=== PATIENT | female | born 1985 | race Two or more races ===

== ENCOUNTER 2018-06-09 00:23 | Emergency (ER) | payer OTHER ==
[~2018-06-09] VITALS: Ht 160 cm; Wt 56.7 kg
--- NOTE | 2018-06-09 00:30 | NUR ---
PT BIBFAMILY FOR FLANK PAIN, PER PT, POSSIBLY KIDNEY STONES; PT [id number], PT ON MONITOR, VSS, PENDING MD HOPSON
--- NOTE | 2018-06-09 00:45 | NUR ---
URINE COLLECTED AND SENT TO LAB
[2018-06-09 00:46] LABS: APPEARANCE,URINE Clear (CLEAR); BILIRUBIN,URINE Negative (NEGATIVE); BLOOD, URINE Moderate Ery/uL (NEGATIVE); COLOR,URINE Yellow (YELLOW); KETONES,URINE Negative (NEGATIVE); LEUKOCYTE ESTERASE ,URINE Negative (NEGATIVE); NITRITE, URINE Negative (NEGATIVE); PROTEIN,URINE Negative (NEGATIVE); UGLUCOSE Negative (NEGATIVE); UROBILINOGEN,URINE 0.2 EU/dL (0.2)
[2018-06-09] MEDS ORDERED: IV NS 0.9% 1,000 ML IV ONE (01:00)
[2018-06-09 01:01] LABS: BASOPHILS % (AUTO) 0.4 % (0.0-2.0); EOSINOPHILS % (AUTO) 0.7 % (0.0-6.0); HEMATOCRIT 38 % (33-45); LYMPHOCYTES # (AUTO) 2.2 /CMM (0.8-4.8); LYMPHOCYTES % (AUTO) 27.3 % (20.0-44.0); MEAN CORPUSCULAR HGB CONC 34 g/dl (31.0-36.0); MEAN CORPUSCULAR VOLUME 81 fL (82-100); MONOCYTES # (AUTO) 0.5 /CMM (0.1-1.30); MONOCYTES % (AUTO) 6.3 % (2.0-12.0); NEUTROPHILS # (AUTO) 5.3 /CMM (1.8-8.9); NEUTROPHILS % (AUTO) 65.3 % (43.0-81.0); PLATELET COUNT (AUTO) 276 /CMM (150-450); RED BLOOD CELL COUNT(AUTO) 4.75 MIL/uL (4.0-5.2); WHITE BLOOD COUNT (AUTO) 8.1 K/uL (4.3-11.0)
[2018-06-09 01:11] LABS: CALCIUM, SERUM 8.9 mg/dL (8.5-10.1); CREATININE 0.8 mg/dL (0.6-1.3); POTASSIUM 3.7 mmol/L (3.5-5.1)
[2018-06-09 01:17] LABS: ALBUMIN 3.6 g/dL (3.4-5.0); BILIRUBIN,TOTAL 0.3 mg/dL (0.2-1.0); TOTAL PROTEIN, SERUM 7.3 g/dL (6.4-8.2)
[2018-06-09 01:22] LABS: BACTERIA,URINE None seen /HPF (None Seen); RBC,URINE 0-2 /HPF (0-2); SQUAMOUS EPITHELIAL CELL,UR Few /HPF (None Seen); WBC,URINE 0-2 /HPF (0-3)
[2018-06-09] MEDS ORDERED: CEFTRIAXONE 1GM BAG (ER ONLY) 1 GM/50 ML PIGGYBACK IV ONE (01:30)
[2018-06-09] MEDS ORDERED: KETOROLAC TROMETHAMINE INJ 30 MG/ML VIAL IV ONE (01:30)
[2018-06-09] MEDS ORDERED: KETOROLAC TROMETHAMINE 15 MG/ML VIAL ONE (01:45)
[2018-06-09] MEDS ORDERED: CEFTRIAXONE 1GM BAG (ER ONLY) 50 ML IV ONE (01:45)
--- NOTE | 2018-06-09 02:47 | NUR ---
PT APPEARS TO BE SLEEPING SOUNDLY WITH NO S/S OF PAIN OR DISTRESS. PT'S PARENTS ARE AT THE BEDSIDE. VSS.
--- NOTE | 2018-06-09 03:30 | NUR ---
PT HAD TO USE THE BATHROOM. PT WAS DISCONNECTED FROM THE MONITOR AND CONTINUOUS PULSE OX. PT AMBULATED TO THE BATHROOM WITH A STEADY GAIT.
--- NOTE | 2018-06-09 04:10 | NUR ---
Patient discharged to home in stable condition. Written and verbal after care instructions given. Patient verbalizes understanding of instruction. IV removed. Catheter intact and site benign. Pressure and 4x4 applied to site. No bleeding noted. PT AMBULATED OUT WITH A STEADY GAIT. VSS. PT'S IS DRIVING PT HOME.
[2018-06-09 04:37] VITALS: BP 112/62
== END 2018-06-09 04:10 | disposition home or self-care (01) ==
LOC: ER 00:23
DX: N20.0 Calculus of kidney (principal); Z88.6 Allergy status to analgesic agent
CPT/HCPCS: 36415; 74176; 80053; 81001; 84703; 85025; 85730; 87086; 96365; 96375; 99284; J0696; J1885; J7030; 81000-TC

== ENCOUNTER 2022-07-15 20:35 | Emergency (ER) | payer OTHER ==
[~2022-07-15] VITALS: Ht 157.5 cm; Wt 63.5 kg
[2022-07-15 22:13] VITALS: BP 127/83
[2022-07-15] MEDS ORDERED: CYCL5TAB PO (22:16)
[2022-07-15] MEDS ORDERED: KETO10TA2 PO (22:16)
[2022-07-15] MEDS ORDERED: CYCLOBENZAPRINE 10 MG TABLET ONE (22:19)
[2022-07-15] MEDS ORDERED: KETOROLAC TROMETHAMINE INJ 60 MG/2 ML VIAL IM ONE ×2 (22:19→22:30)
[2022-07-15] MEDS ORDERED: CYCLOBENZAPRINE 10 MG TABLET PO ONE (22:30)
--- NOTE | 2022-07-15 22:31 | NUR ---
Patient discharged to home in stable condition. Written and verbal after care instructions given. Patient verbalizes understanding of instruction.
== END 2022-07-15 22:31 | disposition home or self-care (01) ==
LOC: ER 20:38
DX: S39.012A Strain of muscle, fascia and tendon of lower back, initial encounter (principal); Z87.442 Personal history of urinary calculi; Z88.8 Allergy status to other drugs, medicaments and biological substances; X58.XXXA Exposure to other specified factors, initial encounter; Y93.89 Activity, other specified; Y92.89 Other specified places as the place of occurrence of the external cause; Y99.8 Other external cause status
CPT/HCPCS: 99283; 96372; J1885